=== PATIENT | female | born 1990 | race Caucasian/White ===

== ENCOUNTER 2017-04-13 06:10 | Emergency (ER) | payer MEDICAID, OTHER ==
[~2017-04-13] VITALS: Ht 157.5 cm; Wt 112.9 kg
[2017-04-13 06:15] VITALS: BP 123/90
--- NOTE | 2017-04-13 06:26 | NUR ---
PT TAKEN TO BED 3
[2017-04-13] MEDS ORDERED: NACL 0.9% 500 ML IV ONE (06:31)
--- NOTE | 2017-04-13 06:32 | NUR ---
Dr. Johnson evaluating patient at bedside.
[2017-04-13] MEDS ORDERED: ONDANSETRON 4 MG/2 ML VIAL IVP ONE (06:35)
[2017-04-13] MEDS ORDERED: KETOROLAC 30 MG/ML VIAL IVP ONE (06:35)
--- NOTE | 2017-04-13 06:39 | NUR ---
26Y F PRESENTED IN ER C/O OF EPIGASTRIC PAIN X 5 DAYS WITH SOME NAUSEA AND VOMITTING. NO DISTRESS, AWAITING FOR MD ORDERS.
--- NOTE | 2017-04-13 06:45 | NUR ---
Ultrasound at bedside.
[2017-04-13 06:51] LABS: BASOPHILS # (AUTO) 0.1 K/uL (0.00-0.22); BASOPHILS % (AUTO) 0.9 % (0.0-2.0); EOSINOPHILS # (AUTO) 0.2 K/uL (0-0.4); EOSINOPHILS % (AUTO) 1.9 % (0.0-4.0); HEMATOCRIT 38.5 % (36-48); HEMOGLOBIN 12.3 g/dL (12.0-16.0); LYMPHOCYTES # (AUTO) 1.8 K/uL (2.5-16.5); MEAN CORPUSCULAR HEMOGLOBIN 24 pg (27-31); MEAN CORPUSCULAR HGB CONC 32 g/dL (33-37); MEAN CORPUSCULAR VOLUME 76 fL (80-94); MONOCYTES # (AUTO) 0.4 K/uL (0.8-1.0); MONOCYTES % (AUTO) 5.4 % (1.7-9.3); NEUTROPHILS # (AUTO) 5.4 K/uL (1.8-7.7); NEUTROPHILS % (AUTO) 68.8 % (42.2-75.2); PLATELET COUNT (AUTO) 231 K/uL (140-450); RED BLOOD CELL COUNT(AUTO) 5.07 MIL/uL (4.20-5.40); RED CELL DISTRIBUTION WIDTH 14.7 % (11.6-13.7); WHITE BLOOD COUNT (AUTO) 7.9 K/uL (4.8-10.8)
[2017-04-13 07:42] LABS: ANION GAP 11.5 (8-16); CARBON DIOXIDE 26.5 mmol/L (21-32); CREATININE 0.7 mg/dL (0.6-1.3); TOTAL BILIRUBIN 0.2 mg/dL (0.0-1.0)
[2017-04-13 07:43] LABS: ALBUMIN 3.5 g/dL (3.4-5.0); TOTAL PROTEIN, SERUM 7.5 g/dL (6.4-8.2)
[2017-04-13] MEDS ORDERED: MORPHINE SULFATE 4 MG/ML SYR IVP ONE (07:45)
[2017-04-13 08:25] VITALS: BP 115/72
--- NOTE | 2017-04-13 08:25 | NUR ---
Patient discharged with v/s stable. Written and verbal after care instructions given and explained. Patient alert, oriented and verbalized understanding of instructions. Ambulatory with steady gait. All questions addressed prior to discharge. ID band removed. Patient advised to follow up with PMD. Rx of TRAMADOL, ZOFRAN, OMEPRAZOLE given. Patient educated on indication of medication including possible reaction and side effects. Opportunity to ask questions provided and answered.
== END 2017-04-13 08:25 | disposition home or self-care (01) ==
LOC: MED 06:10
DX: K29.70 Gastritis, unspecified, without bleeding (principal); R03.0 Elevated blood-pressure reading, without diagnosis of hypertension; Z88.1 Allergy status to other antibiotic agents
CPT/HCPCS: 36415; 76705; 80053; 81002; 81025; 83690; 85025; 96361; 96374; 96375; 99285; J1885; J2270; J2405; J7030; Q0092

== ENCOUNTER 2017-04-17 10:15 | Emergency (ER) | payer OTHER ==
[~2017-04-17] VITALS: Ht 157.5 cm; Wt 108.9 kg
[2017-04-17 10:27] VITALS: BP 132/76
--- NOTE | 2017-04-17 10:34 | NUR ---
PT AMBULATED TO BED 7.
--- NOTE | 2017-04-17 10:37 | NUR ---
Patient being evaluated by Dr. Hargrove at this time.
--- NOTE | 2017-04-17 10:39 | NUR ---
PATIENT PRESENTS TO ED WITH ABD PAIN "ALL OVER STOMACH" X1 WEEK WITH VOMITING AND DIARRHEA . PT STATES SHE HAS DIARRHEA AND VOMITTED YESTERDAY SKIN IS PINK/WARM/DRY; AAOX4 WITH EVEN AND STEADY GAIT; LUNGS CLEAR BL; HR EVEN AND REGULAR; PT DENIES ANY FEVER, CP, SOB, OR COUGH AT THIS TIME; PATIENT STATES PAIN OF 9/10 AT THIS TIME; VSS; PATIENT POSITIONED FOR COMFORT; HOB ELEVATED; BEDRAILS UP X2; BED DOWN. ER MD AT BEDSIDE..
[2017-04-17] MEDS ORDERED: KETOROLAC 60 MG/2 ML VIAL IM ONE (10:40)
--- NOTE | 2017-04-17 11:01 | NUR ---
PT RESTING ON BED;NO ACUTE DISTRESS NOTED;WILL CONTINUE TO MONITOR PT.
--- NOTE | 2017-04-17 11:05 | NUR ---
Patient discharged with v/s stable. Written and verbal after care instructions given and explained. Patient alert, oriented and verbalized understanding of instructions. Ambulatory with steady gait. All questions addressed prior to discharge. ID band removed. Patient advised to follow up with PMD. Rx of NORCO AND IMMODIUM given. Patient educated on indication of medication including possible reaction and side effects. Opportunity to ask questions provided and answered.
[2017-04-17 11:06] VITALS: BP 119/78
== END 2017-04-17 11:05 | disposition home or self-care (01) ==
LOC: MED 10:15
DX: R10.13 Epigastric pain (principal); R19.7 Diarrhea, unspecified; R11.2 Nausea with vomiting, unspecified; R68.83 Chills (without fever); F17.200 Nicotine dependence, unspecified, uncomplicated; Z90.89 Acquired absence of other organs; Z88.1 Allergy status to other antibiotic agents
CPT/HCPCS: 81002; 81025; 96372; 99283; J1885

== ENCOUNTER 2018-03-27 12:54 | Emergency (ER) | payer MEDICAID, OTHER ==
[~2018-03-27] VITALS: Ht 157.5 cm; Wt 109.3 kg
[2018-03-27 13:00] VITALS: BP 128/75
--- NOTE | 2018-03-27 13:15 | NUR ---
PATIENT PRESENTS TO ED WITH SEVERE LEFT BREAST PAIN THAT STARTED LAST NIGHT. PT STATES IT HURTS TO MOVE HER LEFT ARM. DENIES DIARRHEA; SKIN IS PINK/WARM/DRY; AAOX4 WITH EVEN AND STEADY GAIT; LUNGS CLEAR BL; HR EVEN AND REGULAR; PT DENIES ANY FEVER, CP, SOB, OR COUGH AT THIS TIME; PATIENT STATES PAIN OF 10/10 AT THIS TIME; VSS; PATIENT POSITIONED FOR COMFORT; HOB ELEVATED; BEDRAILS UP X2; BED DOWN. ER MD MADE AWARE OF PT STATUS.
[2018-03-27] MEDS ORDERED: MORPHINE SULFATE 4 MG/ML SYR IVP ONE (13:35)
[2018-03-27] MEDS ORDERED: NACL 0.9% 1,000 ML IV ONE (13:35)
[2018-03-27] MEDS ORDERED: CLINDAMYCIN 600 MG in DEXTROSE 5% 50 ML IV ONE (13:35)
[2018-03-27] MEDS ORDERED: ONDANSETRON 4 MG/2 ML VIAL IVP ONE (13:35)
[2018-03-27] MEDS ORDERED: CLINDAMYCIN 600 MG/4 ML VIAL ONE (13:38)
--- NOTE | 2018-03-27 15:00 | NUR ---
Patient discharged with v/s stable. Written and verbal after care instructions given and explained. Patient alert, oriented and verbalized understanding of instructions. Ambulatory with steady gait. All questions addressed prior to discharge. ID band removed. Patient advised to follow up with PMD. Rx of CLINDAMYCIN AND TRAMADOL given. Patient educated on indication of medication including possible reaction and side effects. Opportunity to ask questions provided and answered.
[2018-03-27 15:01] VITALS: BP 137/82
== END 2018-03-27 15:00 | disposition home or self-care (01) ==
LOC: MED 12:54
DX: N61.0 Mastitis without abscess (principal); Z88.8 Allergy status to other drugs, medicaments and biological substances
CPT/HCPCS: 81025; 96365; 96375; 99284; J2270; J2405; J3490

== ENCOUNTER 2018-03-28 10:30 | Emergency (ER) | payer MEDICAID ==
[~2018-03-28] VITALS: Ht 157.5 cm; Wt 108.9 kg
[2018-03-28 10:40] VITALS: BP 135/85
[2018-03-28] MEDS: CLINDAMYCIN 600 MG/4 ML VIAL IM ONE (12:18)
[2018-03-28] MEDS: DEXAMETHASONE 10 MG/ML VIAL IM ONE (12:19)
[2018-03-28] MEDS: ALBUTEROL SULFATE/IPRATROPIU 3 ML SOL IH ONE (12:24)
[2018-03-28] MEDS: IBUPROFEN 600 MG TAB PO ONE (13:00)
[2018-03-28 13:26] VITALS: BP 133/85
== END 2018-03-28 13:26 | disposition home or self-care (01) ==
LOC: MED 10:30
DX: N61.0 Mastitis without abscess (principal); I88.9 Nonspecific lymphadenitis, unspecified; J32.9 Chronic sinusitis, unspecified; J40 Bronchitis, not specified as acute or chronic; R11.2 Nausea with vomiting, unspecified; Z88.1 Allergy status to other antibiotic agents
CPT/HCPCS: 94640; 96372; 99284; J1100; J3490; J7620

== ENCOUNTER 2018-06-13 17:11 | Emergency (ER) | payer MEDICAID ==
[~2018-06-13] VITALS: Ht 157.5 cm; Wt 108.9 kg
[2018-06-13 17:18] VITALS: BP 124/77
[2018-06-13] MEDS ORDERED: NACL 0.9% 1,000 ML IV ONE (18:20)
[2018-06-13] MEDS ORDERED: PENICILLIN G BENZATHINE L-A 1.2 MU/2 ML SYR IM ONE (18:20)
[2018-06-13] MEDS ORDERED: methylPREDNISolone SS 125 MG/2 ML VIAL IVP ONE (18:20)
[2018-06-13 19:04] LABS: ANION GAP 14.7 (8-16); CARBON DIOXIDE 24.9 mmol/L (21-32); CREATININE 0.9 mg/dL (0.6-1.3); POTASSIUM 3.6 mmol/L (3.5-5.1)
[2018-06-13 19:08] LABS: HEMATOCRIT 44.4 % (36-48); HEMOGLOBIN 14.4 g/dL (12.0-16.0); MEAN CORPUSCULAR HEMOGLOBIN 27 pg (27-31); MEAN CORPUSCULAR VOLUME 84.5 fL (80-94); RED BLOOD CELL COUNT(AUTO) 5.26 MIL/uL (4.20-5.40); WHITE BLOOD COUNT (AUTO) 14.5 K/uL (4.8-10.8)
[2018-06-13 19:09] LABS: MEAN CORPUSCULAR HGB CONC 32 g/dL (33-37); PLATELET COUNT (AUTO) 153 K/uL (140-450); RED CELL DISTRIBUTION WIDTH 14.4 % (11.6-13.7)
[2018-06-13 19:22] LABS: LYMPHOCYTES % (MANUAL) 15 % (20-46)
[2018-06-13 19:24] LABS: TOTAL BILIRUBIN 0.5 mg/dL (0.0-1.0)
[2018-06-13 19:25] LABS: ALBUMIN 3.8 g/dL (3.4-5.0)
[2018-06-13] MEDS ORDERED: KETOROLAC 30 MG/ML VIAL IM ONE (21:15)
[2018-06-13 21:55] VITALS: BP 124/77
== END 2018-06-13 21:53 | disposition home or self-care (01) ==
LOC: MED 17:11
DX: J03.90 Acute tonsillitis, unspecified (principal); Z88.8 Allergy status to other drugs, medicaments and biological substances
CPT/HCPCS: 36415; 70490; 80053; 81002; 81025; 85025; 87081; 96372; 96374; 99285; J0561; J1885; J2930

== ENCOUNTER 2018-12-23 21:52 | Emergency (ER) | payer MEDICAID, OTHER ==
[~2018-12-23] VITALS: Ht 157.5 cm; Wt 99.8 kg
[2018-12-23 22:01] VITALS: BP 137/90
--- NOTE | 2018-12-23 22:04 | NUR ---
TO LOBBY A/W BED, TJ BROUSSARD NOTED NO BLEEDING AT THIS TIME.
--- NOTE | 2018-12-23 22:37 | NUR ---
PT TAKEN TO BED 6
--- NOTE | 2018-12-23 22:40 | NUR ---
PATIENT PRESENTS TO ED WITH RIGHT THUMB LACERATION. PT STATES CLEANING AT WORK , WITH LACERATION ON HER RT, THUMB, TETANUS VACCINE UNSURE, NO BLEEDING AT THIS TIME. DENIES N/V/D; SKIN IS PINK/WARM/DRY; AAOX4 WITH EVEN AND STEADY GAIT; LUNGS CLEAR BL; HR EVEN AND REGULAR; PT DENIES ANY FEVER, CP, SOB, OR COUGH AT THIS TIME; PATIENT STATES PAIN OF 0/10 AT THIS TIME; VSS; PATIENT POSITIONED FOR COMFORT; HOB ELEVATED; BEDRAILS UP X2; BED DOWN. ER MD MADE AWARE OF PT STATUS. PMH: DENIES
--- NOTE | 2018-12-23 23:04 | NUR ---
Dr. Johnson evaluating patient at bedside.
[2018-12-23 23:58] VITALS: BP 132/85
== END 2018-12-23 23:48 | disposition home or self-care (01) ==
LOC: MED 21:52
DX: S61.011A Laceration without foreign body of right thumb without damage to nail, initial encounter (principal); Z88.1 Allergy status to other antibiotic agents; W26.8XXA Contact with other sharp object(s), not elsewhere classified, initial encounter; Y93.89 Activity, other specified; Y92.511 Restaurant or cafe as the place of occurrence of the external cause; Y99.0 Civilian activity done for income or pay
CPT/HCPCS: 12001; 99283

== ENCOUNTER 2019-03-19 10:24 | Emergency (ER) | payer OTHER ==
[~2019-03-19] VITALS: Ht 157.5 cm; Wt 96.2 kg
[2019-03-19 11:12] VITALS: BP 147/89
--- NOTE | 2019-03-19 11:15 | NUR ---
PT AMBULATED TO ER BED 01
--- NOTE | 2019-03-19 11:30 | NUR ---
28/F C/O RT FOOT PAIN/SWOLLEN X 2 MONTHS. PATIENT STATES PAIN OF 7/10 AT THIS TIME. PATIENT POSITIONED FOR COMFORT; HOB ELEVATED; BEDRAILS UP X2; BED DOWN. ER MD MADE AWARE OF PT STATUS.
[2019-03-19 13:17] VITALS: BP 123/73
--- NOTE | 2019-03-19 13:17 | NUR ---
Patient discharged with v/s stable. Written and verbal after care instructions given and explained. Patient alert, oriented and verbalized understanding of instructions. Ambulatory with CRUTCHES. All questions addressed prior to discharge. ID band removed. Patient advised to follow up with PMD. Rx of NAPROSYN given. Patient educated on indication of medication including possible reaction and side effects. Opportunity to ask questions provided and answered.
== END 2019-03-19 13:17 | disposition home or self-care (01) ==
LOC: MED 10:24
DX: M72.2 Plantar fascial fibromatosis (principal); F17.210 Nicotine dependence, cigarettes, uncomplicated; Z88.1 Allergy status to other antibiotic agents; Z90.49 Acquired absence of other specified parts of digestive tract
CPT/HCPCS: 73630; 81002; 81025; 99283; Q0092

== ENCOUNTER 2019-05-02 12:18 | Emergency (ER) | payer OTHER ==
[~2019-05-02] VITALS: Ht 157.5 cm; Wt 102.2 kg
[2019-05-02 12:24] VITALS: BP_SYST 109; BP_SYST 130; BP_DIAS 78; BP_DIAS 87
--- NOTE | 2019-05-02 12:30 | NUR ---
PT AMBULATED TO BED 12
--- NOTE | 2019-05-02 12:50 | NUR ---
PT PRESENTS TO ED WITH C/O ABDOMINAL PAIN X 4 DAYS. PT STATED PLAYED WITH BROTHER AND PT WAS WRAPPED AND SQEEZED UNNER BREAST, THEN PT HAD PAIN. PT AAO X4, GCS 15, AMBULATORY WITH STEADY GAIT. RESPIRATIONS EVEN AND UNLABORED, BL LUNG CLEAR. SKIN WARM/PINK/DRY, +PMSC. ABDOMEN SOFT, NON DISTENDED, ACTIVE BOWEL SOUND X4. STATED PAIN TO LLQ AND LATERAL ABDOMEN 7/10. VS WNL. DR. MCCARTNEY MADE AWARE OF PT STATUS. WILL CONTINUE TO MONITOR
--- NOTE | 2019-05-02 12:50 | NUR ---
PT AMBULATED TO ED BED 01
--- NOTE | 2019-05-02 12:50 | NUR ---
Note undone in EDM - 05/02/19 at 1502 by MEDSP PT PRESENTS TO ED WITH C/O ABDOMINAL PAIN X 4 DAYS. PT STATED PLAYED WITH BROTHER AND WAS WRAPPED AND SQEEZED UNNER BREAST. PT AAO X4, GCS 15, AMBULATORY WITH STDEAY GAIT. RESPIATIONS EVEN AND UNLABORED, BL LUNG CLEAR. SKIN WARM/PINK/DRY, +PMAC. ABDOMEN SOFT, NON DISTENDED, ACTIVE BOWEL SOUND X4. STATED PAIN TO LLQ AND LATERAL ABDOMEN 7/10. VS WNL. DR. MCCARTNEY MADE AWARE OF PT STATUS. WILL CONTINUE TO MONITOR
--- NOTE | 2019-05-02 13:51 | NUR ---
SQL SERVER DEVELOPER HERE TO DRAW LABS.
[2019-05-02] MEDS ORDERED: KETOROLAC 30 MG/ML VIAL IM ONE (13:55)
--- NOTE | 2019-05-02 13:58 | NUR ---
COMMUNITY LIVING SPECIALIST HERE TO TAKE PATIENT.
[2019-05-02] MEDS: DICYCLOMINE HCL LIQUID 20 MG, ALUMINUM HYD/MAG/SIMETHICONE 30 ML, LIDOCAINE VISCOUS 2% ... PO ONE ×6 (14:01→14:13)
[2019-05-02 14:10] LABS: APPEARANCE,URINE CLEAR (CLEAR); BILIRUBIN,URINE NEGATIVE (NEGATIVE); BLOOD, URINE NEGATIVE (NEGATIVE); COLOR,URINE YELLOW (YELLOW); LEUKOCYTE ESTERASE ,URINE NEGATIVE (NEGATIVE); NITRITE, URINE NEGATIVE (NEGATIVE); UGLUCOSE NEGATIVE (NEGATIVE)
[2019-05-02 14:11] LABS: BASOPHILS % (AUTO) 0.4 % (0.0-2.0); EOSINOPHILS # (AUTO) 0.1 K/uL (0-0.4); EOSINOPHILS % (AUTO) 0.8 % (0.0-4.0); HEMATOCRIT 40.4 % (36-48); HEMOGLOBIN 13.3 g/dL (12.0-16.0); LYMPHOCYTES # (AUTO) 1.9 K/uL (2.5-16.5); LYMPHOCYTES % (AUTO) 21.9 % (20.5-51.1); MEAN CORPUSCULAR HEMOGLOBIN 30 pg (27-31); MEAN CORPUSCULAR HGB CONC 33 g/dL (33-37); MEAN CORPUSCULAR VOLUME 89.8 fL (80-94); MONOCYTES # (AUTO) 0.5 K/uL (0.8-1.0); MONOCYTES % (AUTO) 5.1 % (1.7-9.3); NEUTROPHILS # (AUTO) 6.4 K/uL (1.8-7.7); NEUTROPHILS % (AUTO) 71.8 % (42.2-75.2); PLATELET COUNT (AUTO) 175 K/uL (140-450); RED BLOOD CELL COUNT(AUTO) 4.51 MIL/uL (4.20-5.40); WHITE BLOOD COUNT (AUTO) 8.9 K/uL (4.8-10.8)
[2019-05-02 14:18] LABS: ANION GAP 12.9 (8-16); CARBON DIOXIDE 26.5 mmol/L (21-32); CREATININE 0.7 mg/dL (0.6-1.3); POTASSIUM 4.4 mmol/L (3.5-5.1)
[2019-05-02 14:24] LABS: ALBUMIN 2.9 g/dL (3.4-5.0); TOTAL BILIRUBIN 0.3 mg/dL (0.0-1.0)
[2019-05-02 16:00] VITALS: BP 128/81
--- NOTE | 2019-05-02 16:00 | NUR ---
Patient discharged with v/s stable. Written and verbal after care instructions given and explained. Patient alert, oriented and verbalized understanding of instructions. Ambulatory with steady gait. All questions addressed prior to discharge. ID band removed. Patient advised to follow up with PMD. Rx of NORCO AND NAPROSYN given. Patient educated on indication of medication including possible reaction and side effects. Opportunity to ask questions provided and answered.
== END 2019-05-02 16:00 | disposition home or self-care (01) ==
LOC: MED 12:18
DX: R10.13 Epigastric pain (principal); R10.12 Left upper quadrant pain; F17.210 Nicotine dependence, cigarettes, uncomplicated; Z88.1 Allergy status to other antibiotic agents; Z90.49 Acquired absence of other specified parts of digestive tract
CPT/HCPCS: 36415; 74176; 80053; 81003; 81025; 83690; 85025; 96372; 99284; J1885

== ENCOUNTER 2019-05-04 17:56 | Emergency (ER) | payer OTHER ==
[~2019-05-04] VITALS: Ht 157.5 cm; Wt 101.2 kg
[2019-05-04 18:02] VITALS: BP 142/87
--- NOTE | 2019-05-04 18:06 | NUR ---
Patient ambulated to bed 3. RN evaluating patient at bedside.
[2019-05-04] MEDS ORDERED: NACL 0.9% 1,000 ML IV ONE (18:30)
[2019-05-04] MEDS ORDERED: NACL 0.9% 1,000 ML IV SCH (18:30)
[2019-05-04 18:48] LABS: BASOPHILS # (AUTO) 0.1 K/uL (0.00-0.22); BASOPHILS % (AUTO) 0.7 % (0.0-2.0); EOSINOPHILS # (AUTO) 0.1 K/uL (0-0.4); EOSINOPHILS % (AUTO) 1.2 % (0.0-4.0); HEMATOCRIT 41.1 % (36-48); HEMOGLOBIN 13.9 g/dL (12.0-16.0); LYMPHOCYTES # (AUTO) 2.1 K/uL (2.5-16.5); LYMPHOCYTES % (AUTO) 19.7 % (20.5-51.1); MEAN CORPUSCULAR HEMOGLOBIN 30 pg (27-31); MEAN CORPUSCULAR HGB CONC 34 g/dL (33-37); MEAN CORPUSCULAR VOLUME 88.5 fL (80-94); MONOCYTES # (AUTO) 0.4 K/uL (0.8-1.0); MONOCYTES % (AUTO) 3.5 % (1.7-9.3); NEUTROPHILS # (AUTO) 7.9 K/uL (1.8-7.7); NEUTROPHILS % (AUTO) 74.9 % (42.2-75.2); PLATELET COUNT (AUTO) 181 K/uL (140-450); RED BLOOD CELL COUNT(AUTO) 4.65 MIL/uL (4.20-5.40); RED CELL DISTRIBUTION WIDTH 13.7 % (11.6-13.7); WHITE BLOOD COUNT (AUTO) 10.5 K/uL (4.8-10.8)
[2019-05-04 18:49] LABS: APPEARANCE,URINE CLEAR (CLEAR); BILIRUBIN,URINE NEGATIVE (NEGATIVE); BLOOD, URINE NEGATIVE (NEGATIVE); COLOR,URINE YELLOW (YELLOW); LEUKOCYTE ESTERASE ,URINE NEGATIVE (NEGATIVE); NITRITE, URINE NEGATIVE (NEGATIVE); PH,URINE 7.5 (5.0-9.0); UGLUCOSE NEGATIVE (NEGATIVE)
[2019-05-04 18:56] LABS: CREATININE 0.9 mg/dL (0.6-1.3)
[2019-05-04 19:01] LABS: BARBITURATE, URINE NEG. ng/ml (NEG <=200); BENZODIAZEPINE, URINE NEG. ng/mL (NEG <=200); CANNABINOID, URINE NEG. ng/mL (NEG <=50); COCAINE, URINE NEG. ng/mL (NEG <=300); OPIATE, URINE NEG. ng/mL (NEG <=2000); PHENCYCLIDINE SCREEN,URINE NEG. ng/mL (NEG <=25)
[2019-05-04 19:02] LABS: ALBUMIN 3.4 g/dL (3.4-5.0); TOTAL BILIRUBIN 0.3 mg/dL (0.0-1.0)
[2019-05-04] MEDS ORDERED: MORPHINE SULFATE 4 MG/ML SYR IVP ONE (20:15)
--- NOTE | 2019-05-04 20:56 | NUR ---
Patient discharged with v/s stable. Written and verbal after care instructions given and explained. Patient alert, oriented and verbalized understanding of instructions. Ambulatory with steady gait. All questions addressed prior to discharge. ID band removed. Patient advised to follow up with PMD. Rx of norco given. Patient educated on indication of medication including possible reaction and side effects. Opportunity to ask questions provided and answered. pt parents to give her a ride home. pt ambulatory to lobby to wait for her ride.
[2019-05-04 20:57] VITALS: BP 132/88
== END 2019-05-04 20:56 | disposition home or self-care (01) ==
LOC: MED 17:56
DX: N83.201 Unspecified ovarian cyst, right side (principal); M79.89 Other specified soft tissue disorders; F17.200 Nicotine dependence, unspecified, uncomplicated; Z90.49 Acquired absence of other specified parts of digestive tract; Z88.1 Allergy status to other antibiotic agents
CPT/HCPCS: 36415; 76830; 80053; 80305; 81003; 81025; 82150; 83690; 83880; 84703; 85025; 96374; 99284; J2270; Q0092; J7030

== ENCOUNTER 2019-06-02 12:30 | Emergency (ER) | payer OTHER ==
[~2019-06-02] VITALS: Ht 157.5 cm; Wt 95.3 kg
[2019-06-02 12:38] VITALS: BP 105/74
--- NOTE | 2019-06-02 12:41 | NUR ---
URINE CUP HANDED TO PT FOR SAMPLE
--- NOTE | 2019-06-02 13:14 | NUR ---
Patient ambulated to ER bed 2
--- NOTE | 2019-06-02 13:15 | NUR ---
PT C/O SUPRAPUBIC STABBING PAIN RADIATING LOWER BACK X 3 DAYS DENIES VAG BLEED/DC OR DYSURIA AT THIS TIME. NO FEVER , CHILLS. FELLS SLIGHT NAUSEATED. VOMITTED AT HOME X4 YESTERDAY. AAOX4. ER MD TO SEE THE PT. HX--OVARIAN CYST RX--BIRTHCONTROL IMPLANT
[2019-06-02 13:18] LABS: APPEARANCE,URINE CLEAR (CLEAR); BILIRUBIN,URINE NEGATIVE (NEGATIVE); BLOOD, URINE NEGATIVE (NEGATIVE); COLOR,URINE YELLOW (YELLOW); LEUKOCYTE ESTERASE ,URINE NEGATIVE (NEGATIVE); NITRITE, URINE NEGATIVE (NEGATIVE); PH,URINE 6.5 (5.0-9.0); UGLUCOSE NEGATIVE (NEGATIVE)
[2019-06-02] MEDS ORDERED: IBUPROFEN 800 MG TAB PO ONE (13:30)
[2019-06-02] MEDS ORDERED: HYDROcodone/APAP 5/325 MG 1 TAB TAB PO ONE (13:30)
[2019-06-02 14:32] LABS: BASOPHILS % (AUTO) 0.5 % (0.0-2.0); EOSINOPHILS # (AUTO) 0.1 K/uL (0-0.4); EOSINOPHILS % (AUTO) 1.2 % (0.0-4.0); HEMATOCRIT 40.6 % (36-48); HEMOGLOBIN 13.7 g/dL (12.0-16.0); LYMPHOCYTES # (AUTO) 2.1 K/uL (2.5-16.5); LYMPHOCYTES % (AUTO) 30.2 % (20.5-51.1); MEAN CORPUSCULAR HEMOGLOBIN 30 pg (27-31); MEAN CORPUSCULAR HGB CONC 34 g/dL (33-37); MEAN CORPUSCULAR VOLUME 87.7 fL (80-94); MONOCYTES # (AUTO) 0.4 K/uL (0.8-1.0); MONOCYTES % (AUTO) 6.1 % (1.7-9.3); NEUTROPHILS # (AUTO) 4.4 K/uL (1.8-7.7); PLATELET COUNT (AUTO) 159 K/uL (140-450); RED BLOOD CELL COUNT(AUTO) 4.63 MIL/uL (4.20-5.40); RED CELL DISTRIBUTION WIDTH 13.6 % (11.6-13.7); WHITE BLOOD COUNT (AUTO) 7.1 K/uL (4.8-10.8)
[2019-06-02 14:38] LABS: CARBON DIOXIDE 24.7 mmol/L (21-32); CREATININE 0.6 mg/dL (0.6-1.3); POTASSIUM 3.7 mmol/L (3.5-5.1)
[2019-06-02 14:43] LABS: ALBUMIN 3.2 g/dL (3.4-5.0); TOTAL BILIRUBIN 0.5 mg/dL (0.0-1.0)
--- NOTE | 2019-06-02 15:30 | NUR ---
CHECKED ON PT . PT LYING COMFORTABLY IN HER BED.
--- NOTE | 2019-06-02 16:35 | NUR ---
CHECKED ON PT . SLEEPING COMFORTABLY IN HER BED.
[2019-06-02 17:51] VITALS: BP 116/71
--- NOTE | 2019-06-02 17:51 | NUR ---
Patient discharged with v/s stable. Written and verbal after care instructions given and explained. Patient alert, oriented and verbalized understanding of instructions. Ambulatory with steady gait. All questions addressed prior to discharge. ID band removed. Patient advised to follow up with PMD. Rx of NORCO AND IBUPROFEN given. Patient educated on indication of medication including possible reaction and side effects. Opportunity to ask questions provided and answered.
== END 2019-06-02 17:51 | disposition home or self-care (01) ==
LOC: MED 12:30
DX: N83.202 Unspecified ovarian cyst, left side (principal); N83.201 Unspecified ovarian cyst, right side; Z90.49 Acquired absence of other specified parts of digestive tract; Z98.890 Other specified postprocedural states; Z88.1 Allergy status to other antibiotic agents
CPT/HCPCS: 36415; 76830; 76856; 80053; 81003; 81025; 83690; 85025; 93976; 99284; Q0092

== ENCOUNTER 2019-07-11 18:30 | Emergency (ER) | payer OTHER ==
[~2019-07-11] VITALS: Ht 157.5 cm; Wt 104.3 kg
[2019-07-11 18:57] VITALS: BP 108/56
--- NOTE | 2019-07-11 19:20 | NUR ---
PT TO ER BED 1 VIA WHEELCHAIR
--- NOTE | 2019-07-11 19:42 | NUR ---
PT C/O ABD PAIN X2 DAYS. PT HAD SURGERY FOR OVARAIN CYSTS AT [facility] YESTERDAY. PT REPORTS PAIN AROUND SURGICAL INSICION THAT RADIATES TO UPPER ABD. PT STATES SHE IS UNABLE TO PASS GAS OR URINATE. PT'S INSICION IS COVERED BY GAUGE. ABDOMEN IS DISTENDED AND TENDER TO TOUCH. PATIENT STATES PAIN OF 10/10 AT THIS TIME; VSS; PATIENT POSITIONED FOR COMFORT; HOB ELEVATED; BEDRAILS UP X1; BED DOWN. ER MD MADE AWARE OF PT STATUS.
--- NOTE | 2019-07-11 20:27 | NUR ---
Dr. Johnson examining patient.
[2019-07-11] MEDS ORDERED: MORPHINE SULFATE 2 MG/ML SYR IM ONE (20:50)
--- NOTE | 2019-07-11 21:05 | NUR ---
REPORT GIVEN TO JAKE GARRIDO. TRANSFERED CARE AT THIS TIME.
[2019-07-11 22:15] VITALS: BP 129/86
--- NOTE | 2019-07-11 22:15 | NUR ---
DISCHARGE PAPERS GIVEN TO PT. PT STATES 7/10 PAIN BUT TOLLERABLE. VSS. RX OF COLACE GIVEN. SIDE EFFECTS EXPLAINED. INSTRUCTED TO F/U WITH PCP AND WHEN TO RETURN TO ER. PT VERBALLIZED UNDERSTANDING OF DC INSTRUCTIONS. ALL QUESTIONS ANSWERED.
== END 2019-07-11 22:15 | disposition home or self-care (01) ==
LOC: MED 18:30
DX: G89.18 Other acute postprocedural pain (principal); R10.9 Unspecified abdominal pain; Z88.1 Allergy status to other antibiotic agents; Z98.890 Other specified postprocedural states
CPT/HCPCS: 74176; 81002; 81025; 96372; 99284; J2270

== ENCOUNTER 2019-09-16 19:56 | Emergency (ER) | payer OTHER ==
[~2019-09-16] VITALS: Ht 157.5 cm; Wt 99.8 kg
--- NOTE | 2019-09-16 20:17 | NUR ---
PT AMBULATED TO [facility]. PROVIDED URINE.
[2019-09-16 20:29] VITALS: BP 141/92
--- NOTE | 2019-09-16 21:20 | NUR ---
28/F PRESENTED TO ED WITH C/O LEFT FLANK PAIN X3DAYS. 8/10PAIN SHARP. C/O DURAN, LOWER BACK PAIN, NASAL CONGESTION, N/V X1 WK. VSS. EVEN UNLABORED BREATHING. NO SIGNS OF DISTRESS AT THIS TIME. STATES SHE HAS A HX OF KIDNEY STONES. NO PROBLEMS WITH URINATION NOTED. HX: LEFT KIDNEY STONES, LT KIDNEY STENT PLACEMENT, APPENDECTOMY
[2019-09-16] MEDS ORDERED: NACL 0.9% 1,000 ML IV ONE (21:44)
[2019-09-16] MEDS ORDERED: KETOROLAC 30 MG/ML VIAL IVP ONE (21:45)
[2019-09-16] MEDS ORDERED: ONDANSETRON 4 MG/2 ML VIAL IVP ONE (21:45)
--- NOTE | 2019-09-16 21:49 | NUR ---
PT TAKEN TO CT VIA W/C
--- NOTE | 2019-09-16 22:01 | NUR ---
PT BACK FROM CT
[2019-09-16 22:54] LABS: BASOPHILS % (AUTO) 0.5 % (0.0-2.0); EOSINOPHILS # (AUTO) 0.1 K/uL (0-0.4); EOSINOPHILS % (AUTO) 1.3 % (0.0-4.0); HEMATOCRIT 41.6 % (36-48); HEMOGLOBIN 13.9 g/dL (12.0-16.0); LYMPHOCYTES # (AUTO) 1.4 K/uL (2.5-16.5); LYMPHOCYTES % (AUTO) 24.3 % (20.5-51.1); MEAN CORPUSCULAR HEMOGLOBIN 30 pg (27-31); MEAN CORPUSCULAR HGB CONC 33 g/dL (33-37); MEAN CORPUSCULAR VOLUME 89.7 fL (80-94); MONOCYTES # (AUTO) 0.5 K/uL (0.8-1.0); MONOCYTES % (AUTO) 8.6 % (1.7-9.3); NEUTROPHILS # (AUTO) 3.8 K/uL (1.8-7.7); NEUTROPHILS % (AUTO) 65.3 % (42.2-75.2); PLATELET COUNT (AUTO) 167 K/uL (140-450); RED BLOOD CELL COUNT(AUTO) 4.64 MIL/uL (4.20-5.40); RED CELL DISTRIBUTION WIDTH 13.6 % (11.6-13.7); WHITE BLOOD COUNT (AUTO) 5.8 K/uL (4.8-10.8)
[2019-09-16 23:23] LABS: ANION GAP 11.1 (8-16); CARBON DIOXIDE 28.1 mmol/L (21-32); CREATININE 0.6 mg/dL (0.6-1.3); POTASSIUM 4.2 mmol/L (3.5-5.1)
[2019-09-16 23:29] LABS: ALBUMIN 3.3 g/dL (3.4-5.0); TOTAL BILIRUBIN 0.2 mg/dL (0.0-1.0)
--- NOTE | 2019-09-16 23:30 | NUR ---
PT LAYING IN BED ABLE TO MAKE NEEDS KNOWN. ERMD MADE AWARE OF PT THROBBING HEADACHE. WILL CONTINUE TO MONITOR.
[2019-09-17 00:12] LABS: APPEARANCE,URINE CLEAR (CLEAR); BILIRUBIN,URINE NEGATIVE (NEGATIVE); BLOOD, URINE NEGATIVE (NEGATIVE); COLOR,URINE YELLOW (YELLOW); LEUKOCYTE ESTERASE ,URINE NEGATIVE (NEGATIVE); NITRITE, URINE NEGATIVE (NEGATIVE); UGLUCOSE NEGATIVE (NEGATIVE)
[2019-09-17] MEDS ORDERED: fentaNYL 0.05 MG/ML VIAL IVP ONE (00:45)
[2019-09-17 01:00] VITALS: BP 119/80
--- NOTE | 2019-09-17 01:00 | NUR ---
Patient discharged with v/s stable. Written and verbal after care instructions given and explained. Patient alert, oriented and verbalized understanding of instructions. Ambulatory with steady gait. All questions addressed prior to discharge. ID band removed. Patient advised to follow up with PMD. Rx of NORCO, NAPROSYN given. Patient educated on indication of medication including possible reaction and side effects. Opportunity to ask questions provided and answered.
== END 2019-09-17 01:00 | disposition home or self-care (01) ==
LOC: MED 19:56
DX: R10.9 Unspecified abdominal pain (principal); R05 Cough; Z87.442 Personal history of urinary calculi; Z88.1 Allergy status to other antibiotic agents
CPT/HCPCS: 36415; 74176; 80053; 81003; 81025; 83690; 85025; 96374; 96375; 99284; J1885; J2405; J3010; J7030

== ENCOUNTER 2019-11-05 23:48 | Emergency (ER) | payer OTHER ==
[~2019-11-05] VITALS: Ht 157.5 cm; Wt 99.8 kg
[2019-11-06] VITALS: BP 152/93
[2019-11-06] MEDS: IBUPROFEN 600 MG TAB PO ONE (01:05)
[2019-11-06 01:35] VITALS: BP 151/77
== END 2019-11-06 | disposition home or self-care (01) ==
LOC: MED 23:48
DX: M25.562 Pain in left knee (principal); Z88.8 Allergy status to other drugs, medicaments and biological substances
CPT/HCPCS: 73562; 99283

== ENCOUNTER 2019-12-08 12:10 | Emergency (ER) | payer OTHER ==
[~2019-12-08] VITALS: Ht 157.5 cm; Wt 99.8 kg
[2019-12-08 12:48] VITALS: BP 126/75
--- NOTE | 2019-12-08 12:53 | NUR ---
INFLUENZA SWAB COLLECTED--URINE CUP HANDED TO PT FOR SAMPLE
--- NOTE | 2019-12-08 14:15 | NUR ---
29/F TO ED FOR C/O COLD SYMPTOMS (GEN WEAKNESS, BODYACHES, FEVER, CHILLS) X 1 WEEK. LUNG SOUNDS CLEAR BILATERALLY. IN CHAIR FOR MSE.
[2019-12-08 14:24] VITALS: BP 126/75
--- NOTE | 2019-12-08 14:24 | NUR ---
Patient discharged with v/s stable. Written and verbal after care instructions given and explained. Patient alert, oriented and verbalized understanding of instructions. Ambulatory with steady gait. All questions addressed prior to discharge. ID band removed. Patient advised to follow up with PMD. Rx of PROMETHAZINE, TAMIFLU, MOTRIN given. Patient educated on indication of medication including possible reaction and side effects. Opportunity to ask questions provided and answered.
== END 2019-12-08 14:24 | disposition home or self-care (01) ==
LOC: MED 12:10
DX: J09.X2 Influenza due to identified novel influenza A virus with other respiratory manifestations (principal); Z88.1 Allergy status to other antibiotic agents; Z87.448 Personal history of other diseases of urinary system
CPT/HCPCS: 87804; 99283

== ENCOUNTER 2020-07-08 19:00 | Emergency (ER) | payer OTHER ==
[~2020-07-08] VITALS: Ht 157.5 cm; Wt 99.8 kg
[2020-07-08 19:05] VITALS: BP 148/84
--- NOTE | 2020-07-08 19:20 | NUR ---
PT SEEN AND EVALUATED BY MICHELLE SANTIZO. NO NURSING CARE PROVIDED FOR PT.
--- NOTE | 2020-07-08 19:40 | NUR ---
Patient discharged with v/s stable. Written and verbal after care instructions given and explained. Patient alert, oriented and verbalized understanding of instructions. Ambulatory with steady gait. All questions addressed prior to discharge. ID band removed. Patient advised to follow up with PMD. Rx of OFLOXACIN given. Patient educated on indication of medication including possible reaction and side effects. Opportunity to ask questions provided and answered.
== END 2020-07-08 19:40 | disposition home or self-care (01) ==
LOC: MED 19:00
DX: H60.92 Unspecified otitis externa, left ear (principal); Z90.49 Acquired absence of other specified parts of digestive tract; Z98.890 Other specified postprocedural states; Z88.1 Allergy status to other antibiotic agents; Z87.442 Personal history of urinary calculi
CPT/HCPCS: 99283

== ENCOUNTER 2020-08-07 20:53 | Emergency (ER) | payer OTHER ==
[~2020-08-07] VITALS: Ht 162.6 cm; Wt 83.9 kg
[2020-08-07 21:05] VITALS: BP 123/68
--- NOTE | 2020-08-07 21:09 | NUR ---
PT AMBUALTED TO RESTROOM TO PROVIDE URINE SAMPLE.
--- NOTE | 2020-08-07 21:15 | NUR ---
29 Y/O FEMALE PRESENTS TO ER WITH C/O BILATERAL LOWER QUADRANT PAIN WITH RADIATION TO LOWER BACK X 2 DAYS. 9/10 PAIN. PT ALSO C/O DYSURIA, FREQUENCY, PRESSURE, OLGURIA, CHILLS, FEVER WHEN HOME, AFEBRILE WHILE HERE IN ER UNSURE IF HAVING HEMATURIA DUE TO LMP 08/05/20. DENIES SOB, NAUSEA, VOMITING, DIARRHEA, COUGH, HEADACHE. VSS, R/R EQUAL, AND UNLABORED. WILL CONTINUE TO MONITOR. ALLERGY: ROCEPHIN PMH: KIDNEY STONES, KIDNEY STENT
[2020-08-07] MEDS ORDERED: PHENAZOPYRIDINE 100 MG TAB PO ONE (21:45)
[2020-08-07] MEDS ORDERED: NITROFURANTOIN 100 MG CAP PO STA (21:53)
[2020-08-07 22:09] VITALS: BP 123/68
--- NOTE | 2020-08-07 22:10 | NUR ---
Patient discharged with v/s stable. Written and verbal after care instructions given and explained. Patient alert, oriented and verbalized understanding of instructions. Ambulatory with to car. All questions addressed prior to discharge. ID band removed. Patient advised to follow up with PMD. Rx of PYRIDIUM; NITROFURANTOIN given. Patient educated on indication of medication including possible reaction and side effects. Opportunity to ask questions provided and answered.
[2020-08-08 00:58] LABS: APPEARANCE,URINE CLOUDY (CLEAR); BILIRUBIN,URINE NEGATIVE (NEGATIVE); BLOOD, URINE 3+ (NEGATIVE); COLOR,URINE YELLOW (YELLOW); LEUKOCYTE ESTERASE ,URINE 3+ (NEGATIVE); NITRITE, URINE POSITIVE (NEGATIVE); UGLUCOSE NEGATIVE (NEGATIVE)
[2020-08-08 01:24] LABS: WBC,URINE 20-60 /HPF (0-5)
[2020-08-08] MEDS ORDERED: NITROFURANTOIN 100 MG CAP PO SCH (08:00)
--- NOTE | 2020-08-11 07:39 | NUR ---
Urine culture received from lab. Culture and sensitivity received and shown to Dr. Hargrove. No new orders received. Treatment appropriate. No further care needed. Copy of C&S placed in discrepancy folder.
== END 2020-08-07 22:10 | disposition home or self-care (01) ==
LOC: MED 20:53
DX: N39.0 Urinary tract infection, site not specified (principal); N20.0 Calculus of kidney; F17.210 Nicotine dependence, cigarettes, uncomplicated; Z88.1 Allergy status to other antibiotic agents; Z71.6 Tobacco abuse counseling
CPT/HCPCS: 81001; 81025; 87086; 87186; 99283

== ENCOUNTER 2020-08-09 21:37 | Emergency (ER) | payer OTHER ==
[~2020-08-09] VITALS: Ht 157.5 cm; Wt 99.3 kg
--- NOTE | 2020-08-09 21:50 | NUR ---
PT AMBULATED TO BED #6
[2020-08-09 21:52] VITALS: BP 144/81
--- NOTE | 2020-08-09 21:55 | NUR ---
Dr. Campbell at bedside evaluating pt.
[2020-08-09 22:00] VITALS: BP 144/81
[2020-08-09] MEDS ORDERED: NACL 0.9% 1,000 ML IV ONE (22:00)
[2020-08-09] MEDS ORDERED: KETOROLAC 15 MG/ML VIAL IVP ONE (22:00)
--- NOTE | 2020-08-09 22:00 | NUR ---
29 year old female coming in for body aches x 1 day. reports 10/10 pain. reports coming to [facility] x 2 days for UTI infection. reports chest pains, headaches, leg pains. VS elevated. refer to vital signs sheet. pt is a/o x 4. denies headache/blurry vision. denies sob/cough. denies n/v/d. pmhx: denies allx; rocephin
--- NOTE | 2020-08-09 22:04 | NUR ---
pt ambulated to restroom with steady gait.
[2020-08-09 22:23] LABS: APPEARANCE,URINE CLEAR (CLEAR); BILIRUBIN,URINE NEGATIVE (NEGATIVE); BLOOD, URINE 3+ (NEGATIVE); COLOR,URINE ORANGE (YELLOW); LEUKOCYTE ESTERASE ,URINE TRACE (NEGATIVE); NITRITE, URINE POSITIVE (NEGATIVE); PH,URINE 8.5 (5.0-9.0); UGLUCOSE 1+ (NEGATIVE)
[2020-08-09 22:24] LABS: BASOPHILS % (AUTO) 0.4 % (0.0-2.0); EOSINOPHILS % (AUTO) 0.1 % (0.0-4.0); HEMATOCRIT 38.7 % (36-48); HEMOGLOBIN 12.6 g/dL (12.0-16.0); LYMPHOCYTES # (AUTO) 1.3 K/uL (2.5-16.5); LYMPHOCYTES % (AUTO) 13.7 % (20.5-51.1); MEAN CORPUSCULAR HEMOGLOBIN 28 pg (27-31); MEAN CORPUSCULAR HGB CONC 33 g/dL (33-37); MEAN CORPUSCULAR VOLUME 85.1 fL (80-94); MONOCYTES # (AUTO) 0.6 K/uL (0.8-1.0); MONOCYTES % (AUTO) 6.3 % (1.7-9.3); NEUTROPHILS # (AUTO) 7.7 K/uL (1.8-7.7); NEUTROPHILS % (AUTO) 79.5 % (42.2-75.2); PLATELET COUNT (AUTO) 216 K/uL (140-450); RED BLOOD CELL COUNT(AUTO) 4.55 MIL/uL (4.20-5.40); RED CELL DISTRIBUTION WIDTH 13.8 % (11.6-13.7); WHITE BLOOD COUNT (AUTO) 9.7 K/uL (4.8-10.8)
[2020-08-09 22:37] LABS: RBC,URINE 11-20 (MOD) /HPF (0-5)
[2020-08-09 22:43] LABS: ALBUMIN 3.2 g/dL (3.4-5.0); CARBON DIOXIDE 24.7 mmol/L (21-32); CREATININE 0.9 mg/dL (0.6-1.3); POTASSIUM 3.7 mmol/L (3.5-5.1); TOTAL BILIRUBIN 0.3 mg/dL (0.0-1.0)
[2020-08-09] MEDS ORDERED: KETOROLAC 15 MG/ML VIAL ONE (23:11)
[2020-08-09] MEDS ORDERED: ONDANSETRON 4 MG/2 ML VIAL ONE (23:11)
[2020-08-09] MEDS ORDERED: CIPROFLOXACIN 250 MG TAB PO ONE (23:15)
[2020-08-09] MEDS ORDERED: ONDANSETRON 4 MG/2 ML VIAL IVP ONE (23:15)
[2020-08-09] MEDS ORDERED: ACETAMINOPHEN EXTRA STRENGTH 500 MG TAB PO ONE (23:15)
--- NOTE | 2020-08-10 00:31 | NUR ---
Patient discharged with v/s stable. Written and verbal after care instructions given and explained. Patient verbalized understanding. Prescribed with Ciprofloxacin Ambulatory with steady gait. All questions addressed prior to discharge. Advised to follow up with PMD.
[2020-08-15 08:07] LABS: CK-BB 0 % (0); CK-MB 0 % (0-3); CK-MM 100 % (97-100)
== END 2020-08-10 00:31 | disposition home or self-care (01) ==
LOC: MED 21:37
DX: N12 Tubulo-interstitial nephritis, not specified as acute or chronic (principal)
CPT/HCPCS: 36415; 80053; 81001; 81025; 82552; 85025; 87086; 96361; 96374; 96375; 99284; J1885; J2405; J7030

== ENCOUNTER 2020-09-27 19:10 | Emergency (ER) | payer OTHER ==
[~2020-09-27] VITALS: Ht 157.5 cm; Wt 99.8 kg
[2020-09-27 19:52] VITALS: BP 133/85
[2020-09-27] MEDS ORDERED: ACETAMINOPHEN EXTRA STRENGTH 500 MG TAB PO ONE (20:55)
--- NOTE | 2020-09-27 21:11 | NUR ---
PT RETURN FROM XRAY TO ER BED 4
--- NOTE | 2020-09-27 21:20 | NUR ---
BIBS, C/O RT WRIST PAIN @ 06/05 DUE TO FALL TONIGHT. ADDITIONALLY, SHE STATES THAT SHE HAS BEEN SMELLING A SEWAGE SMELL EVERYWHERE X2 MO. A/O X4. PUPILS 3MM, BRISK. HAND GRASPS EQUAL. DENIES LOSS OF SMELL/TASTE. PMH-NONE ALLERGIES- ROCEPHIN
--- NOTE | 2020-09-27 21:38 | NUR ---
PTS RIGHT ARM WAS PLACED IN A WRIST SPLINT. PTS [facility] WNL.
[2020-09-27 21:45] VITALS: BP 129/82
--- NOTE | 2020-09-27 22:29 | NUR ---
Patient discharged with v/s stable. Written and verbal after care instructions given and explained. Patient verbalized understanding. Ambulatory with steady gait. All questions addressed prior to discharge. Advised to follow up with PMD.
== END 2020-09-27 22:29 | disposition home or self-care (01) ==
LOC: MED 19:10
DX: M79.641 Pain in right hand (principal)
CPT/HCPCS: 29125; 73130; 99283; Q0092

== ENCOUNTER 2021-05-22 00:34 | Emergency (ER) | payer OTHER ==
[~2021-05-22] VITALS: Ht 157.5 cm; Wt 95.3 kg
[2021-05-22 00:40] VITALS: BP 140/80
--- NOTE | 2021-05-22 00:43 | NUR ---
to lobby a/w bed ambulatory
--- NOTE | 2021-05-22 00:51 | NUR ---
Pt taken to Xray via w/c
--- NOTE | 2021-05-22 01:00 | NUR ---
PT RETURNED FROM XRAY.
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
[2021-05-22] MEDS ORDERED: NAPR-54 PO (02:12)
== END 2021-05-22 02:15 | disposition home or self-care (01) ==
LOC: MED 00:34
DX: S43.401A Unspecified sprain of right shoulder joint, initial encounter (principal); Z87.442 Personal history of urinary calculi; Y35.811A Legal intervention involving manhandling, law enforcement official injured, initial encounter; Y93.89 Activity, other specified; Y92.89 Other specified places as the place of occurrence of the external cause; Y99.8 Other external cause status
CPT/HCPCS: 73030; 99283

== ENCOUNTER 2021-07-10 15:47 | Emergency (ER) | payer OTHER ==
[~2021-07-10] VITALS: Ht 157.5 cm; Wt 99.8 kg
[~2021-07-10 15:47] MED LIST: NAPR-54 PO
[2021-07-10 15:52] VITALS: BP 130/72
--- NOTE | 2021-07-10 15:59 | NUR ---
30 YEAR OLD FEMALE, , CURRENTLY 7 WEEKS , COMPLAINS OF 8/10 EPIGASTRIC PAIN X1 MONTH. PT STATES THIS LAST WEEK HAS GOTTEN WORSE; SHE NOW HAS NAUSEA AND VOMITTING WHENEVER PT EATS. PT DENIES FEVER, DIARRHEA, HEMOPTYSIS. IN ED, VSS. NO ACTIVE VOMITING NOTED. ABDOMEN SOFT, NONTENDER WITH NORMOACTIVE BS. PT CHANGED TO GOWN. ERMD MADE AWARE OF PT STATUS. PMH - DENIES ALLERGY: CEFTRIAXONE
[2021-07-10] MEDS ORDERED: NACL 0.9% 1,000 ML IV SCH (16:20)
[2021-07-10] MEDS ORDERED: ONDANSETRON 4 MG/2 ML VIAL IVP ONE ×2 (16:20→16:35)
[2021-07-10] MEDS ORDERED: KETOROLAC 30 MG/ML VIAL IVP ONE (16:20)
[2021-07-10] MEDS ORDERED: ACETAMINOPHEN EXTRA STRENGTH 500 MG TAB PO ONE (16:35)
[2021-07-10 16:55] LABS: BASOPHILS % (AUTO) 0.4 % (0.0-2.0); EOSINOPHILS # (AUTO) 0.1 K/uL (0-0.4); EOSINOPHILS % (AUTO) 1.4 % (0.0-4.0); HEMATOCRIT 36.2 % (36-48); HEMOGLOBIN 11.5 g/dL (12.0-16.0); LYMPHOCYTES # (AUTO) 1.7 K/uL (2.5-16.5); LYMPHOCYTES % (AUTO) 19.5 % (20.5-51.1); MEAN CORPUSCULAR HEMOGLOBIN 24 pg (27-31); MEAN CORPUSCULAR HGB CONC 32 g/dL (33-37); MEAN CORPUSCULAR VOLUME 75.1 fL (80-94); MONOCYTES # (AUTO) 0.5 K/uL (0.8-1.0); MONOCYTES % (AUTO) 5.5 % (1.7-9.3); NEUTROPHILS # (AUTO) 6.3 K/uL (1.8-7.7); NEUTROPHILS % (AUTO) 73.2 % (42.2-75.2); PLATELET COUNT (AUTO) 229 K/uL (140-450); RED BLOOD CELL COUNT(AUTO) 4.82 MIL/uL (4.20-5.40); RED CELL DISTRIBUTION WIDTH 18.6 % (11.6-13.7); WHITE BLOOD COUNT (AUTO) 8.7 K/uL (4.8-10.8)
[2021-07-10 17:12] LABS: ALBUMIN 3.2 g/dL (3.4-5.0); ANION GAP 11.3 (8-16); CARBON DIOXIDE 23.3 mmol/L (21-32); CREATININE 0.7 mg/dL (0.6-1.3); POTASSIUM 3.6 mmol/L (3.5-5.1); TOTAL BILIRUBIN 0.3 mg/dL (0.0-1.0)
[2021-07-10] MEDS ORDERED: DOXY1TCP PO (17:50)
[2021-07-10] MEDS ORDERED: ACET-10509 PO (17:50)
[2021-07-10] MEDS ORDERED: ALUMINUM HYD/MAG/SIMETHICONE 30 ML, DICYCLOMINE HCL LIQUID 20 MG, LIDOCAINE VISCOUS 2% ... PO ONE ×3 (18:05)
[2021-07-10] MEDS ORDERED: ALUMINUM HYD/MAG/SIMETHICONE 30 ML UDC ONE (18:13)
[2021-07-10] MEDS ORDERED: DICYCLOMINE HCL LIQUID 10 MG/5 ML UDC ONE (18:13)
[2021-07-10 18:32] VITALS: BP 130/72
--- NOTE | 2021-07-10 18:32 | NUR ---
Patient discharged with v/s stable. Written and verbal after care instructions given and explained. Patient alert, oriented and verbalized understanding of instructions. Ambulatory with steady gait. All questions addressed prior to discharge. ID band removed. Patient advised to follow up with PMD. Rx of TYLENOL EXTRA STRENGTH, DICLEGIS given. Patient educated on indication of medication including possible reaction and side effects. Opportunity to ask questions provided and answered.
== END 2021-07-10 18:32 | disposition home or self-care (01) ==
LOC: MED 15:47
DX: O26.891 Other specified pregnancy related conditions, first trimester (principal); O21.8 Other vomiting complicating pregnancy; R10.13 Epigastric pain; Z90.49 Acquired absence of other specified parts of digestive tract; Z3A.01 Less than 8 weeks gestation of pregnancy; Z88.1 Allergy status to other antibiotic agents; Z79.899 Other long term (current) drug therapy; Z87.442 Personal history of urinary calculi
CPT/HCPCS: 36415; 76705; 80053; 81002; 81025; 83690; 85025; 96361; 96374; 99284; J2405; J7030

== ENCOUNTER 2022-04-20 20:08 | Emergency (ER) | payer OTHER ==
[~2022-04-20] VITALS: Ht 157.5 cm; Wt 110.2 kg
[~2022-04-20 20:08] MED LIST changes: +ACET-10509 PO; +DOXY1TCP PO
[2022-04-20 20:17] VITALS: BP 166/101
--- NOTE | 2022-04-20 20:35 | NUR ---
ER AT BEDSIDE
[2022-04-20] MEDS ORDERED: KETOROLAC 60 MG/2 ML VIAL IM ONE (20:40)
[2022-04-20] MEDS ORDERED: IBUP-2213 PO (20:47)
[2022-04-20] MEDS ORDERED: ACET-8386 PO (20:47)
--- NOTE | 2022-04-20 20:55 | NUR ---
XRAY AT BEDSIDE
--- NOTE | 2022-04-20 21:37 | NUR ---
31 YO F BIBS W C/O OF FALL ON LEFT AND RIGHT ARM. LIMITED ROM TO LEFT ARM, SWELLING, DENIES HITTING HEAD AND LOOSING CONSCIOUSNESS. 10/10 PAIN. A/OX4, GCS-15;AMBULTORY W/O ASSISTANCE; UNLABORED BREATHING AND TALKING IN FULL SENTENCES. CMS INTACT. PT LAYING SUPINE IN BED WIT HBED IN LOWEST SETTING, AND RAILS UP X1. PMH: DENIES ALLERGY ROCEFFIN
[2022-04-20 22:11] VITALS: BP 148/98
--- NOTE | 2022-04-20 22:13 | NUR ---
Patient discharged with v/s stable. Written and verbal after care instructions given and explained. Patient alert, oriented and verbalized understanding of instructions. Ambulatory with steady gait. All questions addressed prior to discharge. ID band removed. Patient advised to follow up with PMD. Rx of IBUPROFEN AND NORCO (5-325) given. Patient educated on indication of medication including possible reaction and side effects. Opportunity to ask questions provided and answered. A/OX4, VSS, UNLABORED BREATHING, AMBULATORY, AND CALM DEMEANOR.
== END 2022-04-20 22:11 | disposition home or self-care (01) ==
LOC: MED 20:08
DX: M25.522 Pain in left elbow (principal); M25.512 Pain in left shoulder; Z88.1 Allergy status to other antibiotic agents; Z79.899 Other long term (current) drug therapy; Z98.890 Other specified postprocedural states; Z90.49 Acquired absence of other specified parts of digestive tract; Z87.442 Personal history of urinary calculi
CPT/HCPCS: 73030; 73080; 96372; 99284; J1885; Q0092

== ENCOUNTER 2022-07-16 14:01 | Emergency (ER) | payer OTHER ==
[~2022-07-16] VITALS: Ht 157.5 cm; Wt 112.9 kg
[~2022-07-16 14:01] MED LIST changes: +ACET-8386 PO; +IBUP-2213 PO
[2022-07-16 14:07] VITALS: BP 192/115
--- NOTE | 2022-07-16 14:19 | NUR ---
[facility] : RIGHT EYE 20/70, LEFT EYE 20/100, BOTH EYES 20/70
--- NOTE | 2022-07-16 15:47 | NUR ---
PATIENT AMBULATED TO BED 4
--- NOTE | 2022-07-16 15:50 | NUR ---
31 y/o female, c/o headache for 1 week, blurry vision, right finger numbness for 5 days. pt a&ox4, clear speech, ambulatory with steady gait, no upper or lower extremity weakness or deficit. facial expressions even with no droop. pmh: htn allergy: ceftriaxone
--- NOTE | 2022-07-16 16:44 | NUR ---
pt walked out of emergency room with even and steady gait stating "I'll go have a stroke somewhere else". ermd and insulation cupola charger notified.
--- NOTE | 2022-07-16 16:44 | NUR ---
PATIENT ELOPED FROM FACILITY. DISCHARGE INSTRUCTIONS NOT GIVEN TO PATIENT. DR. Gomez NOTIFIED.
== END 2022-07-16 16:44 | disposition left against medical advice (07) ==
LOC: MED 14:01
DX: R51.9 Headache, unspecified (principal); H53.8 Other visual disturbances; R20.0 Anesthesia of skin; Z53.21 Procedure and treatment not carried out due to patient leaving prior to being seen by health care provider
CPT/HCPCS: 99283

== ENCOUNTER 2022-09-01 17:36 | Emergency (ER) | payer OTHER ==
[~2022-09-01] VITALS: Ht 157.5 cm; Wt 106.6 kg
[2022-09-01 18:41] VITALS: BP 177/121
[2022-09-01] MEDS ORDERED: LORazepam 1 MG TAB PO ONE (19:30)
[2022-09-01] MEDS ORDERED: LORazepam 1 MG TAB ONE (20:34)
== END 2022-09-01 20:35 | disposition home or self-care (01) ==
LOC: MED 17:36
DX: T63.481A Toxic effect of venom of other arthropod, accidental (unintentional), initial encounter (principal); Y92.89 Other specified places as the place of occurrence of the external cause
CPT/HCPCS: 93005; 99283

== ENCOUNTER 2023-04-12 00:59 | Emergency (ER) | payer OTHER ==
[~2023-04-12] VITALS: Ht 157.5 cm; Wt 108.9 kg
[~2023-04-12 00:59] MED LIST changes: -ACET-8386 PO; +ACET-8905 PO
[2023-04-12 01:21] VITALS: BP 149/105
--- NOTE | 2023-04-12 02:10 | NUR ---
Pt to bed 09. Dr. Woodall at bedside assessing patient.
--- NOTE | 2023-04-12 02:15 | NUR ---
Patient resting in bed, A/Ox4, chest rise and fall symmetrical, no s/s of distress, on monitor.
--- NOTE | 2023-04-12 02:30 | NUR ---
Dr. Woodall performing procedure, no s/s of distress, patient tolerating procedure well.
[2023-04-12] MEDS ORDERED: HYDROcodone/APAP 5/325 MG 1 TAB TAB PO ONE ×2 (02:45→06:10)
[2023-04-12] MEDS ORDERED: LIDOCAINE MPF 1% 10 MG/ML VIAL INJ ONE (02:45)
[2023-04-12] MEDS ORDERED: LIDOCAINE 1% 500 MG/ 50 ML VIAL INJ ONE (02:45)
--- NOTE | 2023-04-12 03:00 | NUR ---
Patient resting in bed, A/Ox4, chest rise and fall symmetrical, no c/o pain or s/s of distress.
[2023-04-12] MEDS ORDERED: DOXY-745 PO (03:42)
[2023-04-12] MEDS ORDERED: VALA1TAB40 PO (03:42)
--- NOTE | 2023-04-12 04:00 | NUR ---
Gale Camargo called and informed ER staff, over phone, that patient's swab "needs to be sent out." Dr. Woodall verbally informed and Dr. Woodall stated to "send swab out." Gale Camargo verbally informed that Dr. Woodall said to "send swab out." Gale Camargo verbalized understanding.
--- NOTE | 2023-04-12 05:40 | NUR ---
Patient resting in bed, A/Ox4, chest rise and fall symmetrical, no c/o pain or s/s of distress.
[2023-04-12 05:53] LABS: APPEARANCE,URINE CLEAR (CLEAR); BILIRUBIN,URINE NEGATIVE (NEGATIVE); BLOOD, URINE NEGATIVE (NEGATIVE); COLOR,URINE YELLOW (YELLOW); LEUKOCYTE ESTERASE ,URINE NEGATIVE (NEGATIVE); NITRITE, URINE NEGATIVE (NEGATIVE); UGLUCOSE NEGATIVE (NEGATIVE)
--- NOTE | 2023-04-12 05:57 | NUR ---
Dr. Woodall at bedside examining patient. Patient now c/o aching, nonradiating, abdominal pain 06/05. Addendum: 04/12/23 at [id number] Woodall at bedside, with female ER staff Amanda REYES, examining patient. Patient now c/o aching, nonradiating, abdominal pain 06/05.
[2023-04-12] MEDS ORDERED: GENTAMICIN 80 MG/2 ML VIAL IM ONE (06:00)
[2023-04-12] MEDS ORDERED: AZITHROMYCIN 250 MG TAB PO ONE (06:00)
[2023-04-12] MEDS ORDERED: KETOROLAC 30 MG/ML VIAL IM ONE (06:10)
--- NOTE | 2023-04-12 06:38 | NUR ---
ULTRASOUND AT BEDSIDE
[2023-04-12 07:18] LABS: BASOPHILS % (AUTO) 0.4 % (0.0-2.0); EOSINOPHILS # (AUTO) 0.2 K/uL (0-0.4); EOSINOPHILS % (AUTO) 1.4 % (0.0-4.0); HEMATOCRIT 39.4 % (36-48); HEMOGLOBIN 13.2 g/dL (12.0-16.0); LYMPHOCYTES # (AUTO) 3.6 K/uL (2.5-16.5); MEAN CORPUSCULAR HEMOGLOBIN 28 pg (27-31); MEAN CORPUSCULAR HGB CONC 33 g/dL (33-37); MEAN CORPUSCULAR VOLUME 83.1 fL (80-94); MONOCYTES # (AUTO) 0.6 K/uL (0.8-1.0); MONOCYTES % (AUTO) 5.7 % (1.7-9.3); NEUTROPHILS # (AUTO) 6.8 K/uL (1.8-7.7); NEUTROPHILS % (AUTO) 60.5 % (42.2-75.2); PLATELET COUNT (AUTO) 230 K/uL (140-450); RED BLOOD CELL COUNT(AUTO) 4.74 MIL/uL (4.20-5.40); WHITE BLOOD COUNT (AUTO) 11.2 K/uL (4.8-10.8)
--- NOTE | 2023-04-12 07:18 | NUR ---
Change of shift report given to AM shift Nurse Fausto JOSEPH. AM shift Nurse Fausto RN verbalized understanding of report, no further questions.
[2023-04-12 08:11] VITALS: BP 151/102
[2023-04-12 08:14] LABS: ALBUMIN 3.4 g/dL (3.4-5.0); CARBON DIOXIDE 27.7 mmol/L (21-32); CREATININE 0.9 mg/dL (0.6-1.3); POTASSIUM 3.7 mmol/L (3.5-5.1); TOTAL BILIRUBIN 0.4 mg/dL (0.0-1.0)
== END 2023-04-12 08:15 | disposition home or self-care (01) ==
LOC: MED 00:59
DX: N72 Inflammatory disease of cervix uteri (principal); N90.89 Other specified noninflammatory disorders of vulva and perineum; I10 Essential (primary) hypertension; N18.9 Chronic kidney disease, unspecified; Z88.8 Allergy status to other drugs, medicaments and biological substances; Z79.899 Other long term (current) drug therapy
CPT/HCPCS: 36415; 76856; 80053; 81003; 81025; 85025; 86694; 86703; 87252; 87491; 87529; 96372; 99285; J1580; J1885; J2001; Q0092

== ENCOUNTER 2023-04-29 06:25 | Emergency (ER) | payer OTHER ==
[~2023-04-29] VITALS: Ht 157.5 cm; Wt 89.8 kg
[~2023-04-29 06:25] MED LIST changes: +DOXY-745 PO; +VALA1TAB40 PO
[2023-04-29 06:28] VITALS: BP 193/106
--- NOTE | 2023-04-29 06:34 | NUR ---
TO BED 1 FOLLOWING TRIAGE
[2023-04-29] MEDS ORDERED: DEXAMETHASONE 10 MG/ML VIAL IVP ONE (07:15)
[2023-04-29] MEDS ORDERED: diphenhydrAMINE 50 MG/ML VIAL IVP ONE (07:15)
[2023-04-29] MEDS ORDERED: NACL 0.9% 1,000 ML IV ONE (07:15)
[2023-04-29] MEDS ORDERED: METOCLOPRAMIDE 10 MG/2 ML INJ VIAL IVP ONE (07:15)
[2023-04-29] MEDS ORDERED: KETOROLAC 30 MG/ML VIAL IVP ONE (07:15)
[2023-04-29] MEDS ORDERED: SUMAtriptan succinate 6 MG/0.5 ML VIAL SUBQ ONE (07:20)
[2023-04-29 07:42] LABS: BASOPHILS # (AUTO) 0.1 K/uL (0.00-0.22); BASOPHILS % (AUTO) 0.5 % (0.0-2.0); EOSINOPHILS # (AUTO) 0.1 K/uL (0-0.4); EOSINOPHILS % (AUTO) 1.1 % (0.0-4.0); HEMATOCRIT 38.5 % (36-48); HEMOGLOBIN 12.7 g/dL (12.0-16.0); LYMPHOCYTES # (AUTO) 1.8 K/uL (2.5-16.5); LYMPHOCYTES % (AUTO) 15.9 % (20.5-51.1); MEAN CORPUSCULAR HEMOGLOBIN 27 pg (27-31); MEAN CORPUSCULAR HGB CONC 33 g/dL (33-37); MEAN CORPUSCULAR VOLUME 82.6 fL (80-94); MONOCYTES # (AUTO) 0.5 K/uL (0.8-1.0); MONOCYTES % (AUTO) 4.8 % (1.7-9.3); NEUTROPHILS # (AUTO) 8.6 K/uL (1.8-7.7); NEUTROPHILS % (AUTO) 77.7 % (42.2-75.2); PLATELET COUNT (AUTO) 223 K/uL (140-450); RED BLOOD CELL COUNT(AUTO) 4.66 MIL/uL (4.20-5.40); RED CELL DISTRIBUTION WIDTH 13.9 % (11.6-13.7)
--- NOTE | 2023-04-29 07:46 | NUR ---
medicated for headache 08/06, + hypersensitivity to light, nsr on cm, o2 sat 98% ra, sr up times 2
[2023-04-29 07:55] LABS: ALBUMIN 3.1 g/dL (3.4-5.0); ANION GAP 9.7 (8-16); CARBON DIOXIDE 26.9 mmol/L (21-32); CREATININE 0.7 mg/dL (0.6-1.3); POTASSIUM 3.6 mmol/L (3.5-5.1); TOTAL BILIRUBIN 0.3 mg/dL (0.0-1.0)
--- NOTE | 2023-04-29 10:00 | NUR ---
pt sleeping, no ac distress, nsr on cm o2 sat 98% ra, sr up times 2 headache 01/06, no n/v
[2023-04-29] MEDS ORDERED: IMI25 PO (10:30)
--- NOTE | 2023-04-29 10:54 | NUR ---
Patient discharged with v/s stable. Written and verbal after care instructions given and explained. Patient verbalized understanding. Ambulatory with steady gait. All questions addressed prior to discharge. Advised to follow up with PMD. headache 01/06
[2023-04-29 10:55] VITALS: BP 139/79
== END 2023-04-29 10:54 | disposition home or self-care (01) ==
LOC: MED 06:25
DX: G43.909 Migraine, unspecified, not intractable, without status migrainosus (principal); I10 Essential (primary) hypertension; Z88.1 Allergy status to other antibiotic agents; Z79.899 Other long term (current) drug therapy; Z87.442 Personal history of urinary calculi; Z90.49 Acquired absence of other specified parts of digestive tract; Z98.890 Other specified postprocedural states
CPT/HCPCS: 36415; 70450; 80053; 83690; 85025; 96361; 96372; 96374; 96375; 99285; J1100; J1200; J1885; J2765; J3030; J7030

== ENCOUNTER 2023-05-02 03:05 | Emergency (ER) | payer OTHER ==
[~2023-05-02] VITALS: Ht 157.5 cm; Wt 108.9 kg
[~2023-05-02 03:05] MED LIST changes: +IMI25 PO
[2023-05-02 03:34] VITALS: BP 143/95
--- NOTE | 2023-05-02 03:37 | NUR ---
PT TO [facility]
[2023-05-02] MEDS ORDERED: diazePAM 5 MG TAB PO ONE (04:25)
[2023-05-02] MEDS ORDERED: KETOROLAC 30 MG/ML VIAL IM ONE (04:25)
[2023-05-02] MEDS ORDERED: OFLO5SOL27 LEFT EAR (04:35)
[2023-05-02] MEDS ORDERED: NAPR-54 PO (04:35)
--- NOTE | 2023-05-02 04:35 | NUR ---
Patient resting in chair, A/Ox4, chest rise and fall symmetrical, no s/s of distress, patient on monitor.
[2023-05-02 04:58] VITALS: BP 135/82
== END 2023-05-02 04:58 | disposition home or self-care (01) ==
LOC: MED 03:05
DX: H60.92 Unspecified otitis externa, left ear (principal); I10 Essential (primary) hypertension; N18.9 Chronic kidney disease, unspecified; Z79.899 Other long term (current) drug therapy
CPT/HCPCS: 99281; 99283

== ENCOUNTER 2023-07-07 19:07 | Emergency (ER) | payer OTHER ==
[~2023-07-07] VITALS: Ht 157.5 cm; Wt 89.8 kg
[~2023-07-07 19:07] MED LIST changes: +ACET-5629 PO; +NITR100C7 PO; +OFLO5SOL27 LEFT EAR; +ONDA-188 PO
[2023-07-07 19:35] VITALS: BP 123/82; PULSE 99; RESP 18; TEMP 99.6; O2SAT 98
[2023-07-07] MEDS ORDERED: PANTOPRAZOLE 40 MG INJ VIAL IVP ONE (20:10)
[2023-07-07] MEDS ORDERED: NACL 0.9% 1,000 ML IV ONE (20:10)
[2023-07-07] MEDS ORDERED: KETOROLAC 15 MG/ML VIAL IVP ONE (20:10)
[2023-07-07] MEDS ORDERED: ONDANSETRON 4 MG/2 ML VIAL IVP ONE (20:10)
[2023-07-07 20:25] LABS: BASOPHILS % (AUTO) 0.3 % (0.0-2.0); EOSINOPHILS % (AUTO) 0.2 % (0.0-4.0); HEMATOCRIT 40.6 % (36-48); HEMOGLOBIN 13.3 g/dL (12.0-16.0); LYMPHOCYTES # (AUTO) 0.4 K/uL (2.5-16.5); MEAN CORPUSCULAR HEMOGLOBIN 27 pg (27-31); MEAN CORPUSCULAR HGB CONC 33 g/dL (33-37); MONOCYTES # (AUTO) 0.5 K/uL (0.8-1.0); MONOCYTES % (AUTO) 7.6 % (1.7-9.3); NEUTROPHILS # (AUTO) 5.5 K/uL (1.8-7.7); NEUTROPHILS % (AUTO) 85.9 % (42.2-75.2); PLATELET COUNT (AUTO) 224 K/uL (140-450); RED BLOOD CELL COUNT(AUTO) 5.01 MIL/uL (4.20-5.40); RED CELL DISTRIBUTION WIDTH 14.4 % (11.6-13.7); WHITE BLOOD COUNT (AUTO) 6.3 K/uL (4.8-10.8)
[2023-07-07 20:37] LABS: ALBUMIN 3.5 g/dL (3.4-5.0); ANION GAP 12.5 (8-16); CALCIUM 8.6 mg/dL (8.5-10.1); CARBON DIOXIDE 26.9 mmol/L (21-32); POTASSIUM 3.4 mmol/L (3.5-5.1); TOTAL BILIRUBIN 0.3 mg/dL (0.0-1.0); TOTAL PROTEIN, SERUM 7.2 g/dL (6.4-8.2)
[2023-07-07 21:13] LABS: APPEARANCE,URINE SL CLOUDY (CLEAR); BILIRUBIN,URINE NEGATIVE (NEGATIVE); BLOOD, URINE NEGATIVE (NEGATIVE); COLOR,URINE YELLOW (YELLOW); LEUKOCYTE ESTERASE ,URINE NEGATIVE (NEGATIVE); NITRITE, URINE NEGATIVE (NEGATIVE); PROTEIN,URINE 1+ (NEGATIVE); UGLUCOSE NEGATIVE (NEGATIVE); UROBILINOGEN,URINE 0.2 EU/dL (0.2 - 1)
[2023-07-07] MEDS ORDERED: MORPHINE SULFATE 4 MG/ML SYR IVP ONE (21:35)
[2023-07-07] MEDS ORDERED: ONDA-188 PO (21:36)
[2023-07-07] MEDS ORDERED: FAMO-90 PO (21:36)
[2023-07-07] MEDS ORDERED: ACET-10509 PO (21:36)
[2023-07-07] MEDS ORDERED: NIRM1TAB PO (22:00)
[2023-07-07 22:15] VITALS: BP 123/82; PULSE 99; RESP 18; TEMP 99.6; O2SAT 98
== END 2023-07-07 22:15 | disposition home or self-care (01) ==
LOC: MED 19:07
DX: U07.1 COVID-19 (principal); R11.2 Nausea with vomiting, unspecified; R51.9 Headache, unspecified; I10 Essential (primary) hypertension; Z87.442 Personal history of urinary calculi; Z88.1 Allergy status to other antibiotic agents; Z79.899 Other long term (current) drug therapy
CPT/HCPCS: 36415; 80053; 81003; 81025; 83690; 85025; 87426; 96361; 96374; 96375; 99284; C9113; J1885; J2270; J2405; J7030

== ENCOUNTER 2023-07-12 21:29 | Emergency (ER) | payer OTHER ==
[~2023-07-12] VITALS: Ht 157.5 cm; Wt 102.1 kg
[~2023-07-12 21:29] MED LIST changes: +FAMO-90 PO; +NIRM1TAB PO
[2023-07-12 22:28] VITALS: BP 168/104; PULSE 80; RESP 20; TEMP 97.9; O2SAT 97
[2023-07-13] MEDS ORDERED: KETOROLAC 30 MG/ML VIAL IM ONE (03:05)
[2023-07-13] MEDS ORDERED: NAPR-54 PO (03:33)
[2023-07-13] MEDS ORDERED: AZIT250T4 PO (03:33)
[2023-07-13 04:26] VITALS: BP 141/90; PULSE 80; RESP 20; TEMP 97.9; O2SAT 97
== END 2023-07-13 04:26 | disposition home or self-care (01) ==
LOC: MED 21:29
DX: S16.1XXA Strain of muscle, fascia and tendon at neck level, initial encounter (principal); H66.91 Otitis media, unspecified, right ear; I12.9 Hypertensive chronic kidney disease with stage 1 through stage 4 chronic kidney disease, or unspecified chronic kidney disease; N18.9 Chronic kidney disease, unspecified; Z79.899 Other long term (current) drug therapy; V49.88XA Car occupant (driver) (passenger) injured in other specified transport accidents, initial encounter; Y93.89 Activity, other specified; Y92.89 Other specified places as the place of occurrence of the external cause; Y99.8 Other external cause status
CPT/HCPCS: 81025; 96372; 99283; J1885

== ENCOUNTER 2024-06-03 07:34 | Emergency (ER) | payer OTHER ==
[~2024-06-03] VITALS: Ht 157.5 cm; Wt 117.9 kg
[~2024-06-03 07:34] MED LIST changes: +AZIT250T4 PO; +DOXY-22 PO; -DOXY-745 PO; +NAPR-337 PO; -NAPR-54 PO
[2024-06-03 07:42] VITALS: BP 145/103; PULSE 90; RESP 18; TEMP 97.2; O2SAT 99
[2024-06-03 08:35] LABS: BASOPHILS # (AUTO) 0.1 K/uL (0.00-0.22); BASOPHILS % (AUTO) 0.5 % (0.0-2.0); EOSINOPHILS # (AUTO) 0.1 K/uL (0-0.4); EOSINOPHILS % (AUTO) 0.9 % (0.0-4.0); HEMATOCRIT 32.4 % (36-48); HEMOGLOBIN 10.1 g/dL (12.0-16.0); LYMPHOCYTES # (AUTO) 2.7 K/uL (2.5-16.5); LYMPHOCYTES % (AUTO) 25.4 % (20.5-51.1); MEAN CORPUSCULAR HEMOGLOBIN 22 pg (27-31); MEAN CORPUSCULAR HGB CONC 31 g/dL (33-37); MEAN CORPUSCULAR VOLUME 68.8 fL (80-94); MONOCYTES # (AUTO) 0.8 K/uL (0.8-1.0); MONOCYTES % (AUTO) 6.9 % (1.7-9.3); NEUTROPHILS # (AUTO) 7.2 K/uL (1.8-7.7); NEUTROPHILS % (AUTO) 66.3 % (42.2-75.2); PLATELET COUNT (AUTO) 339 K/uL (140-450); RED CELL DISTRIBUTION WIDTH 17.2 % (11.6-13.7); WHITE BLOOD COUNT (AUTO) 10.8 K/uL (4.8-10.8)
[2024-06-03 09:06] LABS: ANION GAP 10.8 (8-16); CALCIUM 9.2 mg/dL (8.5-10.1); CARBON DIOXIDE 28.1 mmol/L (21-32); CREATININE 0.8 mg/dL (0.6-1.3); POTASSIUM 3.9 mmol/L (3.5-5.1)
[2024-06-03] MEDS: KETOROLAC 30 MG/ML VIAL IM ONE (09:11)
[2024-06-03 09:20] LABS: APPEARANCE,URINE CLEAR (CLEAR); BILIRUBIN,URINE 1+ (NEGATIVE); BLOOD, URINE NEGATIVE (NEGATIVE); COLOR,URINE YELLOW (YELLOW); LEUKOCYTE ESTERASE ,URINE TRACE (NEGATIVE); NITRITE, URINE NEGATIVE (NEGATIVE); PROTEIN,URINE NEGATIVE (NEGATIVE); UGLUCOSE NEGATIVE (NEGATIVE); UROBILINOGEN,URINE 0.2 EU/dL (0.2 - 1)
[2024-06-03 09:22] LABS: ALBUMIN 3.1 g/dL (3.4-5.0); BILIRUBIN,DIRECT 0.1 mg/dL (0.0-0.3); TOTAL BILIRUBIN 0.3 mg/dL (0.0-1.0); TOTAL PROTEIN, SERUM 6.9 g/dL (6.4-8.2)
[2024-06-03 09:42] LABS: BACTERIA,URINE FEW /HPF (None Seen); ICTOTEST POSITIVE (NEGATIVE); RBC,URINE 0-5 /HPF (0-5); SQUAMOUS EPITHELIAL CELL,UR 0-3 (FEW) /LPF (0-3 (FEW))
[2024-06-03] MEDS: MORPHINE SULFATE 4 MG/ML SYR IM ONE (10:20)
[2024-06-03 12:01] VITALS: BP 133/91; PULSE 77; RESP 18; TEMP 98.1; O2SAT 97
[2024-06-03] MEDS ORDERED: IBUP-2213 PO (12:27)
[2024-06-03] MEDS ORDERED: NITR100C7 PO (12:27)
== END 2024-06-03 14:25 | disposition home or self-care (01) ==
LOC: MED 07:34
DX: N83.292 Other ovarian cyst, left side (principal); N83.291 Other ovarian cyst, right side; I10 Essential (primary) hypertension; Z87.442 Personal history of urinary calculi; Z98.890 Other specified postprocedural states; Z79.1 Long term (current) use of non-steroidal anti-inflammatories (NSAID); Z79.2 Long term (current) use of antibiotics; Z79.899 Other long term (current) drug therapy; Z88.8 Allergy status to other drugs, medicaments and biological substances
CPT/HCPCS: 36415; 74177; 76830; 80048; 80076; 81001; 81025; 82150; 83690; 85025; 87086; 93976; 96372; 99285; J1885; J2270; Q0092; Q9967

== ENCOUNTER 2024-06-25 17:32 | Emergency (ER) | payer OTHER ==
[~2024-06-25] VITALS: Ht 157.5 cm; Wt 124.0 kg
[2024-06-25 17:56] VITALS: BP 124/80; PULSE 103; RESP 18; TEMP 98.9; O2SAT 99
[2024-06-25] MEDS ORDERED: AMOX875T3 PO (18:42)
[2024-06-25] MEDS ORDERED: DICL20GE TP (18:43)
[2024-06-25] MEDS ORDERED: IBUP-1842 PO (18:43)
[2024-06-25] MEDS ORDERED: LID5T TP (18:43)
[2024-06-25] MEDS ORDERED: ACET-10509 PO (18:43)
[2024-06-25] MEDS: ONDANSETRON 4 MG ODT PO ONE (18:58)
[2024-06-25] MEDS: KETOROLAC 30 MG/ML VIAL IM ONE (18:58)
[2024-06-25 20:31] LABS: FLU A ANTIGEN negative (NEGATIVE); FLU B ANTIGEN NEGATIVE (NEGATIVE)
== END 2024-06-25 19:20 | disposition home or self-care (01) ==
LOC: MED 17:32
DX: J02.9 Acute pharyngitis, unspecified (principal); Z20.822 Contact with and (suspected) exposure to COVID-19; R11.2 Nausea with vomiting, unspecified; Z79.899 Other long term (current) drug therapy; Z88.1 Allergy status to other antibiotic agents
CPT/HCPCS: 81025; 87081; 87426; 87804; 96372; 99283; J1885; Q0162

== ENCOUNTER 2024-08-27 21:55 | Emergency (ER) | payer OTHER ==
[~2024-08-27] VITALS: Ht 157.5 cm; Wt 117.9 kg
[~2024-08-27 21:55] MED LIST changes: -ACET-10509 PO; +ACET500T99 PO; +AMOX875T3 PO; +DICL20GE TP; +IBUP-1842 PO; +LID5T TP
[2024-08-27 22:10] VITALS: BP 138/77; PULSE 88; RESP 20; TEMP 98; O2SAT 18
[2024-08-27] MEDS ORDERED: ACET500T99 PO (23:47)
[2024-08-27] MEDS ORDERED: IBUP-2218 PO (23:47)
[2024-08-27] MEDS ORDERED: CYCL-711 PO (23:47)
[2024-08-27] MEDS ORDERED: DICL20GE TP (23:47)
[2024-08-27] MEDS: LIDOCAINE 5% 1 EA PATCH TP ONE (23:49)
[2024-08-27] MEDS: KETOROLAC 30 MG/ML VIAL IM ONE (23:51)
== END 2024-08-27 23:55 | disposition home or self-care (01) ==
LOC: MED 21:55
DX: G89.29 Other chronic pain (principal); M54.50 Low back pain, unspecified; Z79.899 Other long term (current) drug therapy; Z88.1 Allergy status to other antibiotic agents
CPT/HCPCS: 96372; 99283; J1885

== ENCOUNTER 2024-09-15 19:47 | Emergency (ER) | payer OTHER ==
[~2024-09-15] VITALS: Ht 157.5 cm; Wt 129.3 kg
[~2024-09-15 19:47] MED LIST changes: +CYCL-711 PO; +IBUP-2218 PO
[2024-09-15 19:58] VITALS: BP 162/86; PULSE 96; RESP 16; TEMP 98.1; O2SAT 100
[2024-09-15] MEDS ORDERED: ACET-8905 PO (20:22)
[2024-09-15 20:31] VITALS: BP 162/86; PULSE 96; RESP 16; TEMP 98.1; O2SAT 97
[2024-09-15] MEDS: KETOROLAC 30 MG/ML VIAL IM ONE (20:40)
== END 2024-09-15 20:50 | disposition home or self-care (01) ==
LOC: MED 19:47
DX: K08.89 Other specified disorders of teeth and supporting structures (principal); R51.9 Headache, unspecified; Z79.899 Other long term (current) drug therapy; Z88.8 Allergy status to other drugs, medicaments and biological substances
CPT/HCPCS: 96372; 99283; J1885